=== PATIENT | female | born 1945 | race Caucasian/White ===

== ENCOUNTER 2021-01-27 22:17 | Inpatient (IN) | payer MEDICARE, MEDICAID ==
[~2021-01-27] VITALS: Ht 152.4 cm; Wt 63.7 kg
--- NOTE | 2021-01-27 22:36 | NUR ---
ASSUMED CARE OF PATIENT. PT BIB EMS FROM [facility] A TRANSFER. PATIENT REPORTS THAT A WEEK AGO SHE WAS DRIVING TO [place] A PASSENGER AND STARTED HAVING TROUBLE WITH HER SPEECH, DROOLING AND LEFT SIDED WEAKNESS. PT DID NOT GO INTO THE HOSPITAL UNTIL TODAY. PT HAS SOME MILD LEFT ARM WEAKNESS. PT RERPORTS HER SPEECH IS BETTER AND SHE IS NOT DROOLING MUCH, BUT PT IS STILL HAVING TROUBLE WITH HER GAIT WHEN SHE WALKS. PT SEEN BY DR HARRIS. VS STABLE. J[employer]IOR [employer]EL[employer] ON. NSR NOTED. WILL CONTINUE TO MONITOR.
[2021-01-27] MEDS ORDERED: METO10TA2 PO (22:40)
[2021-01-27] MEDS ORDERED: LISI-170 PO (22:40)
[2021-01-27] MEDS ORDERED: AMIO200T42 PO (22:40)
[2021-01-27 22:58] LABS: BASOPHILS % (AUTO) 1 % (0-1); EOSINOPHILS % (AUTO) 1 % (1-7); LYMPHOCYTES % (AUTO) 37 % (22-44); MEAN CORPUSCULAR HEMOGLOBIN 34.5 pg (27.0-34.8); MEAN CORPUSCULAR HGB CONC 35.2 g/dL (32.4-35.8); MEAN PLATELET VOLUME 7.5 fL (7.4-10.4); MONOCYTES % (AUTO) 7 % (2-9); NEUTROPHILS % (AUTO) 54 % (42-75); PLATELET COUNT 275 x10^3/uL (130-400); RED BLOOD COUNT 4.46 x10^6/uL (3.82-5.3); RED CELL DISTRIBUTION WIDTH 12.7 % (9.6-15.2)
[2021-01-27 23:05] LABS: ALBUMIN 3.5 g/dL (3.4-5.0); ANION GAP 8 mmol/L (5-15); CALCIUM 9.5 mg/dL (8.5-10.1); CHLORIDE 105 mmol/L (98-107); CREATININE 1.32 mg/dL (0.55-1.02)
[2021-01-27 23:09] LABS: TROPONIN I < 0.015 ng/mL (0.000-0.045)
[2021-01-28] VITALS (11 sets, daily range): BP systolic 109–163; BP diastolic 73–94
[2021-01-28] MEDS ORDERED: BISACODYL 10 MG SUPP PR PRN (00:30)
[2021-01-28] MEDS ORDERED: SENNA/DOCUSATE TABLET PO PRN (00:30)
[2021-01-28] MEDS ORDERED: ACETAMINOPHEN 650 MG/20.3 ML UDC PO PRN (00:30)
[2021-01-28] MEDS ORDERED: ONDANSETRON 4 MG TABLET PO PRN (00:30)
[2021-01-28] MEDS ORDERED: POLYETHYLENE GLYCOL 17 GM PACKET PO PRN (00:30)
[2021-01-28] MEDS: ATORVASTATIN 40 MG TABLET PO SCH ×2 (00:38→21:00)
[2021-01-28 04:57] LABS: BASOPHILS % (AUTO) 0 % (0-1); EOSINOPHILS % (AUTO) 1 % (1-7); LYMPHOCYTES % (AUTO) 40 % (22-44); MEAN CORPUSCULAR HGB CONC 34.6 g/dL (32.4-35.8); MEAN PLATELET VOLUME 7.5 fL (7.4-10.4); MONOCYTES % (AUTO) 7 % (2-9); NEUTROPHILS % (AUTO) 52 % (42-75); PLATELET COUNT 277 x10^3/uL (130-400); RED BLOOD COUNT 4.42 x10^6/uL (3.82-5.3); RED CELL DISTRIBUTION WIDTH 12.8 % (9.6-15.2)
[2021-01-28 05:08] LABS: ALBUMIN 3.4 g/dL (3.4-5.0); ANION GAP 5 mmol/L (5-15); CALCIUM 9.2 mg/dL (8.5-10.1); CHLORIDE 104 mmol/L (98-107)
[2021-01-28 05:12] LABS: ALANINE AMINOTRANSFERASE 21 U/L (12-78); ALKALINE PHOSPHATASE 120 U/L (45-117); BILIRUBIN,TOTAL 0.7 mg/dL (0.2-1.0); CREATININE 1.33 mg/dL (0.55-1.02); TOTAL PROTEIN 7.7 g/dL (6.4-8.2)
[2021-01-28] MEDS ORDERED: INSU100C SQ-INSULIN (05:31)
[2021-01-28] MEDS ORDERED: INSU100I11 SQ (05:31)
[2021-01-28] MEDS ORDERED: INSULIN LISPRO 100 UNITS/ML, PEN SQ-INSULIN SCH (07:00)
[2021-01-28] MEDS ORDERED: ASPIRIN 81 MG TABLET CHEW PO/NG SCH (09:00)
[2021-01-28] MEDS ORDERED: ACETAMINOPHEN 650 MG SUPP PR PRN (09:30)
[2021-01-28] MEDS ORDERED: ASPIRIN 300 MG SUPP PR SCH (09:30)
[2021-01-28] MEDS: ASPIRIN 81 MG TABLET CHEW PO SCH (11:39)
[2021-01-28] MEDS: ACETAMINOPHEN 325 MG TABLET PO PRN (11:39)
[2021-01-28] MEDS: AMIODARONE 200 MG TABLET PO SCH (11:39)
[2021-01-28] MEDS: LISINOPRIL 20 MG TABLET PO SCH (11:39)
[2021-01-28] MEDS: INSULIN LISPRO 100 UNITS/ML, PEN SQ-INSULIN SCH ×3 (12:56→21:00)
[2021-01-28] MEDS ORDERED: LORazepam 2 MG/ML, 1ML ONE (16:42)
[2021-01-28] MEDS ORDERED: LORazepam 2 MG/ML, 1ML IVPush ONE (17:00)
[2021-01-29] VITALS (9 sets, daily range): BP systolic 103–135; BP diastolic 65–80
[2021-01-29 05:17] LABS: CHOL/HDL RATIO 4.9; LDL/HDL RATIO 3.1 (0.5-3.0)
[2021-01-29] MEDS: INSULIN LISPRO 100 UNITS/ML, PEN SQ-INSULIN SCH ×4 (07:00→21:00)
[2021-01-29] MEDS: AMIODARONE 200 MG TABLET PO SCH (07:35)
[2021-01-29] MEDS: ASPIRIN 81 MG TABLET CHEW PO SCH (07:35)
[2021-01-29] MEDS: LISINOPRIL 20 MG TABLET PO SCH (07:35)
[2021-01-29] MEDS: ATORVASTATIN 40 MG TABLET PO SCH (20:15)
[2021-01-30] VITALS (7 sets, daily range): BP systolic 102–134; BP diastolic 68–86
[2021-01-30] MEDS: ACETAMINOPHEN 325 MG TABLET PO PRN (02:49)
[2021-01-30 04:56] LABS: BASOPHILS % (AUTO) 0 % (0-1); EOSINOPHILS % (AUTO) 2 % (1-7); LYMPHOCYTES % (AUTO) 42 % (22-44); MEAN CORPUSCULAR HEMOGLOBIN 34.7 pg (27.0-34.8); MEAN CORPUSCULAR HGB CONC 35.1 g/dL (32.4-35.8); MEAN PLATELET VOLUME 7.5 fL (7.4-10.4); MONOCYTES % (AUTO) 7 % (2-9); NEUTROPHILS % (AUTO) 49 % (42-75); PLATELET COUNT 237 x10^3/uL (130-400); RED BLOOD COUNT 4.03 x10^6/uL (3.82-5.3); RED CELL DISTRIBUTION WIDTH 12.5 % (9.6-15.2)
[2021-01-30 05:06] LABS: ALBUMIN 2.8 g/dL (3.4-5.0); CALCIUM 8.9 mg/dL (8.5-10.1); CREATININE 1.39 mg/dL (0.55-1.02)
[2021-01-30 05:18] LABS: ANION GAP 4 mmol/L (5-15); CHLORIDE 108 mmol/L (98-107)
[2021-01-30] MEDS: INSULIN LISPRO 100 UNITS/ML, PEN SQ-INSULIN SCH ×3 (07:00→16:00)
[2021-01-30] MEDS: ASPIRIN 81 MG TABLET CHEW PO SCH (08:24)
[2021-01-30] MEDS: LISINOPRIL 20 MG TABLET PO SCH (08:24)
[2021-01-30] MEDS: AMIODARONE 200 MG TABLET PO SCH (08:24)
[2021-01-30] MEDS ORDERED: ATOR40TA78 PO (12:33)
[2021-01-30] MEDS ORDERED: ASPI-963 PO (12:33)
== END 2021-01-30 18:17 | disposition home health service (06) | DRG 65 ==
LOC: ED 22:47 → EDIP 01-28 00:12 → 4EST 01-28 00:21
PROVIDERS: ADMIT Internal Medicine; ATTEND Hospitalist
DX: I63.9 Cerebral infarction, unspecified (principal); I48.20 Chronic atrial fibrillation, unspecified; D68.69 Other thrombophilia; I10 Essential (primary) hypertension; R47.01 Aphasia; R00.1 Bradycardia, unspecified; R47.1 Dysarthria and anarthria; E11.9 Type 2 diabetes mellitus without complications; I44.0 Atrioventricular block, first degree; Z79.01 Long term (current) use of anticoagulants; Z79.4 Long term (current) use of insulin; Z80.9 Family history of malignant neoplasm, unspecified; Z82.5 Family history of asthma and other chronic lower respiratory diseases; Z83.3 Family history of diabetes mellitus; Z90.710 Acquired absence of both cervix and uterus
CPT/HCPCS: 36415; 70551; 80048; 80053; 80061; 80069; 82040; 82962; 83036; 83735; 84484; 85025; 93306; 93880; 96374; G0378; 92523-GN; J1815; J2060